=== PATIENT | male | born 1940 | race Caucasian/White ===

== ENCOUNTER → 2019-04-02 14:46 | Outpatient (REF) | payer MEDICARE, BC, SELFPAY | LOC: ANHLAB 14:46 | PROVIDERS: PCP Family Medicine; Visit Provider Nurse Practitioner | DX: C44.42 Squamous cell carcinoma of skin of scalp and neck (principal) | CPT/HCPCS: 88305 ==

== ENCOUNTER → 2019-06-04 09:02 | Outpatient (REF) | payer MEDICARE, BC, SELFPAY | LOC: ANHLAB 09:02 | PROVIDERS: PCP Family Medicine; Visit Provider Nurse Practitioner | DX: C44.42 Squamous cell carcinoma of skin of scalp and neck (principal) | CPT/HCPCS: 88305; 88331 ==

== ENCOUNTER → 2020-10-06 13:38 | Outpatient (REF) | payer MEDICARE, SELFPAY | LOC: ANHLAB 13:38 | PROVIDERS: PCP Family Medicine; Visit Provider Nurse Practitioner | DX: D04.4 Carcinoma in situ of skin of scalp and neck (principal); C44.41 Basal cell carcinoma of skin of scalp and neck; C44.319 Basal cell carcinoma of skin of other parts of face | CPT/HCPCS: 88305; 88342 ==

== ENCOUNTER → 2020-12-22 08:54 | Outpatient (REF) | payer MEDICARE, SELFPAY | LOC: ANHLAB 08:54 | PROVIDERS: PCP Family Medicine; Visit Provider Nurse Practitioner | DX: C44.319 Basal cell carcinoma of skin of other parts of face (principal); C44.42 Squamous cell carcinoma of skin of scalp and neck | CPT/HCPCS: 88305; 88331 ==

== ENCOUNTER → 2021-03-02 08:47 | Outpatient (REF) | payer MEDICARE, SELFPAY | LOC: ANHLAB 08:47 | PROVIDERS: PCP Family Medicine; Visit Provider Nurse Practitioner | DX: C44.42 Squamous cell carcinoma of skin of scalp and neck (principal); C44.41 Basal cell carcinoma of skin of scalp and neck | CPT/HCPCS: 88305; 88331 ==

== ENCOUNTER → 2021-04-13 00:38 | Outpatient (CLI) | payer MEDICARE, SELFPAY ==
[2021-04-13 17:08] LABS: SARS-CoV-2 RNA PCR Negative
== END ==
PROVIDERS: PCP Family Medicine; Visit Provider Family Medicine
DX: Z20.822 Contact with and (suspected) exposure to COVID-19 (principal)
CPT/HCPCS: C9803; U0003; U0005

== ENCOUNTER → 2021-05-11 09:32 | Outpatient (REF) | payer MEDICARE, SELFPAY | LOC: ANHLAB 09:32 | PROVIDERS: PCP Family Medicine; Visit Provider Nurse Practitioner | DX: C44.41 Basal cell carcinoma of skin of scalp and neck (principal) | CPT/HCPCS: 88305; 88331 ==

== ENCOUNTER 2021-07-23 11:05 | Outpatient (CLI) | payer MEDICARE, SELFPAY ==
--- NOTE | ~2021-07-23 | US_ITS ---
US renal BI 07/23/2021 11:48 Procedure: Realtime transabdominal ultrasound of the kidneys and bladder. Indication: Chronic kidney disease stage III Comparison: No prior studies for comparison. Findings: Renal echotexture is normal bilaterally without hydronephrosis, contour deforming mass or r enal calculus. The right kidney measures 10.1 cm and left kidney measures 11.6 cm. Mildly trabeculate d bladder wall. No focal bladder mass. Impression: 1: Unremarkable renal ultrasound. No stones, masses or hydronephrosis. Reviewed, dictated and finalized at location A. Impression: 1: Unremarkable renal ultrasound. No stones, masses or hydronephrosis.
== END 2021-07-23 11:06 | disposition home or self-care (01) ==
PROVIDERS: PCP Family Medicine; Visit Provider Family Medicine
DX: N18.30 Chronic kidney disease, stage 3 unspecified (principal)
CPT/HCPCS: 76775

== ENCOUNTER → 2022-05-25 09:25 | Outpatient (CLI) | payer MEDICARE, SELFPAY ==
--- NOTE | ~2022-05-25 | XR_ITS ---
Lumbosacral Spine: AP, oblique, and lateral views Clinical History: Pain COMPARISON: 06/05/2018 Findings: The normal lordotic curve is maintained. No fracture or subluxation evident. Bridging anter ior ossify to present extending from L2 through L4, similar to prior exam. There is moderate to advan ainsley facet arthropathy from L4 to S1. The sacroiliac joints are normally outlined. Impression: Degenerative spondylosis, essentially stable from prior exam. Reviewed, dictated and finalized at location M. Impression: Degenerative spondylosis, essentially stable from prior exam.
== END ==
PROVIDERS: PCP Family Medicine; Visit Provider Family Medicine
DX: M47.816 Spondylosis without myelopathy or radiculopathy, lumbar region (principal); M54.50 Low back pain, unspecified
CPT/HCPCS: 72110

== ENCOUNTER 2023-11-18 10:17 | Outpatient (CLI) | payer MEDICARE, SELFPAY ==
--- NOTE | ~2023-11-18 | XR_ITS ---
Thoracic spine: Clinical Indication: Back pain AP and lateral views were performed. Probable mild compression deformity of T12. 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 There are minimal degenerative disc changes in the thoracic spine. Paravertebral soft tissues appear normal. Impression: Probable mild compression deformity of T12. Mild degenerative change, as above. Reviewed, dictated and finalized at [facility]. Impression: Probable mild compression deformity of T12. Mild degenerative change, as above.
--- NOTE | ~2023-11-18 | XR_ITS ---
Lumbosacral Spine: AP, oblique, and lateral views Clinical History: Pain COMPARISON: 05/25/2022 Findings: The normal lordotic curve is maintained. No fracture or subluxation evident. Osseous alignm ent unchanged from prior exam. Bridging anterior osteophyte are present extending from L2 through L4. Mild degenerative changes are present. Advanced facet joint degenerative change present at L4-L5 and L5-S1. The sacroiliac joints are normally outlined. Impression: Moderate degenerative spondylosis, as above, essentially stable from prior exam. Reviewed, dictated and finalized at location M. Impression: Moderate degenerative spondylosis, as above, essentially stable from prior exam .
== END 2023-11-18 10:18 | disposition home or self-care (01) ==
LOC: MICIMG 10:20
PROVIDERS: PCP Family Medicine; Visit Provider Family Medicine
DX: M47.817 Spondylosis without myelopathy or radiculopathy, lumbosacral region (principal); M51.34 Other intervertebral disc degeneration, thoracic region
CPT/HCPCS: 72072; 72110

== ENCOUNTER 2023-11-23 09:30 | Outpatient (CLI) | payer MEDICARE, SELFPAY ==
--- NOTE | ~2023-11-23 | CT_ITS ---
CT thoracic spine wo con Ordering provider: Johanna Cherry MD History: . S22.000A - Wedge compression fracture of unspecified thor... . Comparison: None. Technique: CT thoracic spine without contrast. Automated exposure control and iterative reconstructi on technique were employed. The dose-length product was 615.22 mGy-cm. FINDINGS: VERTEBRAE: Normal height and alignment. No subluxation or visible acute fracture. Degenerative change s of the spine. Impression DISC SPACES: Well maintained. PARASPINOUS SOFT TISSUES: Normal. IMPRESSION: No acute osseous abnormality of the thoracic spine. Reviewed, dictated and finalized at location A. Impression DISC SPACES: Well maintained. PARASPINOUS SOFT TISSUES: Normal.
== END 2023-11-23 09:31 | disposition home or self-care (01) ==
LOC: ANHIMG 09:31
PROVIDERS: PCP Family Medicine; Visit Provider Family Medicine
DX: S22.000A Wedge compression fracture of unspecified thoracic vertebra, initial encounter for closed fracture (principal); X58.XXXA Exposure to other specified factors, initial encounter
CPT/HCPCS: 72128

== ENCOUNTER 2023-12-29 12:37 | Outpatient (CLI) | payer MEDICARE, SELFPAY ==
--- NOTE | ~2023-12-29 | DEXA_ITS ---
Bone Density Report Name: DAMIAN MILLER Age: 83 Sex: Male Ethnicity: White Date of : 1940 Indication: screening for osteoporosis; prior fracture; Referring Provider: Johanna Cherry Study: Bone densitometry was performed. Exam Date: December 29, 2023 Accession number: [id number] Bone Density: Region BMD T-score Z-score Classification AP Spine(L1, L3, L4) 0.929 -1.5 -0.2 Osteopenia Femoral Neck (Left) 0.703 -1.7 0.0 Osteopenia Total Hip (Left) 0.836 -1.3 0.0 Osteopenia Femoral Neck (Right) 0.598 -2.4 -0.7 Osteopenia Total Hip (Right) 0.765 -1.8 -0.5 Osteopenia Femoral Neck Mean 0.650 -2.1 -0.4 Osteopenia Total Hip Mean 0.801 -1.5 -0.3 Osteopenia World Health Organization criteria for BMD impression classify patients as: Normal (T-score at or above -1.0), Osteopenia (T-score between -1.0 and -2.5), or Osteoporosis (T-score at or below -2.5). 10-year Fracture Risk(1): Major Osteoporotic Fracture 16% Hip Fracture 6.5% Reported Risk Factors: [place] (), Neck BMD=0.598, BMI=24.9, previous fracture (1) FRAX(R) Version 3.08. Fracture probability calculated for an untreated patient. Fracture probability may be lower if the patient has received treatment. Clinical Information Provided by Patient: Has had a low trauma fracture Has used the following medications: Vitamin D, Calcium Patient maximum height was 70. No regular weight bearing exercise Does not regularly consume dairy products Drinks caffeinated beverages Impression: The patient has low bone mass, based on the Right Femoral Neck T-score. The patient has risk factors, including: previous fracture. Discussion: BONE DENSITY IS LOW AT ONE OR MORE SKELETAL SITES. This patient's lowest T-score is low at one or more skeletal sites. It meets the World Health Organization's (WHO) criteria for ?low bone mass? (T-score between -1.0 and -2.5). The patient's 10-year risk of fracture as calculated by FRAX is less than the threshold where pharmacological therapy is recommended by the National Osteoporosis Foundation (NOF). However, all treatment decisions require clinical judgment and consideration of individual patient factors, including patient preferences, comorbidities, previous drug use, risk factors not captured in the FRAX model (e.g., frailty, falls, vitamin D deficiency, increased bone turnover, interval significant decline in bone density) and possible under or overestimation of fracture risk by FRAX. The patient should follow a healthful lifestyle (good nutrition with adequate calcium and vitamin D, and appropriate weight-bearing exercise). Follow-Up: Consider repeating this study in 2 to 3 years to reassess this patient's status, or sooner if there is some new clinical indication. Reported by: MARIELOS on 12/29/2023 1:04:00 PM. Reviewed, dictated and finalized at location A.
== END 2023-12-29 12:38 | disposition home or self-care (01) ==
LOC: CHSIMG 12:40
PROVIDERS: PCP Family Medicine; Visit Provider Family Medicine
DX: S22.000A Wedge compression fracture of unspecified thoracic vertebra, initial encounter for closed fracture (principal); M85.89 Other specified disorders of bone density and structure, multiple sites
CPT/HCPCS: 77080